=== PATIENT | female | born 1960 | race African-American/Black ===

== ENCOUNTER 2016-10-01 23:09 | Inpatient (IN) | payer OTHER ==
[~2016-10-01] VITALS: Ht 180.3 cm; Wt 96.8 kg
[2016-10-01] MEDS ORDERED: ALBUT/IPRATROP 3MG/0.5MG NEB 3 ML VIAL INH STA (23:25)
--- NOTE | 2016-10-01 23:44 | EMERGENCY ROOM VISIT NOTE ---
History Report prepared by Wallace: Jeet Aponte Under the Supervision of: Dr. Brenda Tipton M.D. First contact with patient: 23:16 Chief Complaint: SHORTNESS OF BREATH Stated Complaint: SOB, PAIN IN SIDE Nursing Triage Summary: Patient c/o SOB that began tonight. Associates dry, non-productive cough. Dx with pnx 1 month ago. Patient to have the 30 day repeat CXR today. History of Present Illness The patient is a 56 year old female who presents to the Emergency Room with complaints of constant shortness of breath starting earlier tonight. The patient currently rates her discomfort as a 8/10 in severity. The patient states that she had pneumonia about a month ago, and has been fine since then until today. She states that when she breathes in, she cannot get enough air in. The patient additionally states that she is having some pain when she lays down or moves, and she states that it radiates to her back. She denies any vomiting, diarrhea, or swelling in her legs. The patient states that when she had the pneumonia, she was on azithromycin. The patient states that she was given a flu shot, and she denies ever smoking. She states that she has been drinking well recently, however her appetite has decreased. The patient states that she was in the [place] about a month ago as well. Source of History: patient Onset: earlier tonight Position: other (global) Symptom Intensity: 8/10 Quality: other (shortness of breath) Timing: constant Associated Symptoms: No diarrhea, No vomiting Review of Systems See HPI for pertinent positives & negatives. A total of 10 systems reviewed and were otherwise negative. Past Medical & Surgical Medical Problems: (1) Dyslipidemia (2) Hepatitis B antibody positive Surgical Problems: (1) Status post breast biopsy (2) Status post hysterectomy Social History Smoking Status: Never Smoker Marital Status: Housing Status: lives with family Occupation Status: employed Current/Historical Medications Scheduled Aspirin (Aspirin Adult Low Dose), 81 MG PO DAILY Atorvastatin (Atorvastatin Calcium), 20 MG PO DAILY Multivitamin (Multivitamin), 1 TAB PO DAILY Allergies Coded Allergies: No Known Allergies (Unverified , 10/01/16) Physical Exam Vital Signs Date Time Temp Pulse Resp B/P Pulse Ox O2 Delivery O2 Flow Rate FiO2 10/02/16 02:19 74 18 137/67 96 Room Air 10/02/16 01:12 78 18 154/70 10/02/16 00:25 77 10/02/16 00:15 82 10/01/16 23:12 37.5 97 18 148/90 97 Room Air 10/01/16 23:12 97 Room Air Physical Exam Vital signs reviewed. General: Well-appearing female, in no significant distress. HEENT: No scleral icterus, PERRLA, neck supple. Atraumatic. Cardiovascular: Regular rate and rhythm, no extra sounds. Pulmonary: Dry cough, faint wheezing bilaterally Abdomen: Soft, nontender, nondistended, positive bowel sounds. Musculoskeletal: Atraumatic, no peripheral edema. Neurologic: Patient awake alert and oriented x 3, full strength in all 4 extremities. Cranial nerves 2 through 12 grossly intact. Skin: Warm, dry, no rash Medical Decision & Procedures ER Provider Diagnostic Interpretation: Chest X-ray as reviewed by me: Right mid-lung field density likely atelectasis or scarring. No focal lung consolidation. CT results as stated below per my review and radiologist interpretation: CTA CHEST: There is some artifact but exam appears positive for PE bilaterally. For example , suspect subsegmental PE right lower lobe and suspected PE in the lingular branches. Some opacity in the lingula is pleural-based and has an appearance suggesting possible infarct. Other areas of atelectasis with small amount of infiltrate not excluded. Cardiomegaly. Possible tiny low-density left thyroid lesion and other incidental findings. Radiologist: Jarrod Shi M.D. Laboratory Results 10/01/16 23:50 Red Blood Count 4.43, Mean Corpuscular Volume 82.4, Mean Corpuscular Hemoglobin 27.8, Mean Corpuscular Hemoglobin Concent 33.7, Mean Platelet Volume 10.4, Neutrophils (%) (Auto) 37.9, Lymphocytes (%) (Auto) 52.3, Monocytes (%) (Auto) 6.4, Eosinophils (%) (Auto) 3.2, Basophils (%) (Auto) 0.1, Neutrophils # (Auto) 2.68, Lymphocytes # (Auto) 3.70, Monocytes # (Auto) 0.45, Eosinophils # (Auto) 0.23, Basophils # (Auto) 0.01 10/01/16 23:50 Test 10/01/16 23:50 10/01/16 23:58 10/02/16 00:00 White Blood Count 7.08 K/uL (4.8-10.8) Red Blood Count 4.43 M/uL (4.2-5.4) Hemoglobin 12.3 g/dL (12.0-16.0) Hematocrit 36.5 % (37-47) Mean Corpuscular Volume 82.4 fL (80-100) Mean Corpuscular Hemoglobin 27.8 pg (25-34) Mean Corpuscular Hemoglobin Concent 33.7 g/dl (32-36) Platelet Count 157 K/uL (130-400) Mean Platelet Volume 10.4 fL (7.4-10.4) Neutrophils (%) (Auto) 37.9 % Lymphocytes (%) (Auto) 52.3 % Monocytes (%) (Auto) 6.4 % Eosinophils (%) (Auto) 3.2 % Basophils (%) (Auto) 0.1 % Neutrophils # (Auto) 2.68 K/uL (1.4-6.5) Lymphocytes # (Auto) 3.70 K/uL (1.2-3.4) Monocytes # (Auto) 0.45 K/uL (0.11-0.59) Eosinophils # (Auto) 0.23 K/uL (0-0.5) Basophils # (Auto) 0.01 K/uL (0-0.2) RDW Standard Deviation 48.0 fL (36.4-46.3) RDW Coefficient of Variation 15.8 % (11.5-14.5) Immature Granulocyte % (Auto) 0.1 % Immature Granulocyte # (Auto) 0.01 K/uL (0.00-0.02) Red Blood Cell Morphology Unremarkable D-Dimer 4820 ug/L FEU (0-500) Anion Gap 12.0 mmol/L (3-11) Est Creatinine Clear Calc Drug Dose 89.4 ml/min Estimated GFR () 83.9 Estimated GFR (Non- 72.4 BUN/Creatinine Ratio 4.4 (10-20) Calcium Level 9.1 mg/dl (8.5-10.1) Total Bilirubin 0.4 mg/dl (0.2-1) Direct Bilirubin 0.1 mg/dl (0-0.2) Aspartate Amino Transf (AST/SGOT) 12 U/L (15-37) Alanine Aminotransferase (ALT/SGPT) 26 U/L (12-78) Alkaline Phosphatase 70 U/L (45-117) Total Creatine Kinase 173 U/L (26-192) Creatine Kinase MB < 0.5 ng/ml (0.5-3.6) Creatine Kinase MB Ratio (0-3.0) Total Protein 6.7 gm/dl (6.4-8.2) Albumin 3.4 gm/dl (3.4-5.0) Influenza Type A Antigen Neg for Influ A (NEG) Influenza Type B Antigen Neg for Influ B (NEG) Bedside Troponin I 0.000 ng/ml (0-0.045) Hepatitis C Antibody Screen NEG (NEG) Date/Time Source Procedure Growth Status 10/02/16 00:00 Nasal MRSA DNA Surveillance Screen - Final Specimen Negative for MRSA by DNA Probe Complete Laboratory results per my review. Medications Administered Medications (Trade) Dose Ordered Sig/Abby Route Start Time Stop Time Status Last Admin Dose Admin Albuterol/ Ipratropium (Duoneb) 3 ml NOW STAT INH 10/01/16 23:25 10/01/16 23:27 DC 10/01/16 23:45 3 ML Prednisone (PredniSONE TAB) 60 mg NOW STAT PO 10/02/16 00:48 10/02/16 00:49 DC 10/02/16 00:56 60 MG Acetaminophen/ Hydrocodone Bitart 2 tab 2 tab NOW STAT PO 10/02/16 01:12 10/02/16 01:13 DC 10/02/16 01:17 2 TAB Sodium Chloride (Nss 500ml) 500 ml @ 999 mls/hr Q31M STAT IV 10/02/16 01:47 10/02/16 02:17 DC 10/02/16 01:47 999 MLS/HR Levofloxacin (Levaquin Tab) 750 mg NOW ONCE PO 10/02/16 02:45 10/02/16 02:46 DC 10/02/16 02:55 750 MG ECG Indication: SOB/dyspnea Rate (beats per minute): 82 Rhythm: normal sinus Findings: no acute ischemic change, no ectopy ED Course 2324: Past medical records reviewed. The patient was evaluated in room A3. A complete history and physical examination was performed. 2325: DuoNeb 3ml INH 0048: Prednisone 60mg PO 0055: I reevaluated the patient, and she was complaining about pain behind her breasts. 0100: Albuterol 2 puffs INH 0112: [place] 5/325 Tab 2 tab PO 0147: Sodium Chloride 500 ml @ 999 mls/hr IV 0245: Levofloxacin 750mg PO 0254: I reassessed the patient, and discussed the possibility of pneumonia 0330: I reevaluated the patient, and I discussed the findings and the plan. 0335: I discussed the patient's case with Dr. Haines. He is going to evaluate the patient for further treatment Medical Decision Differential diagnosed include: Etiologies such as infections, reactive airway disease, pneumonia, pneumothorax, COPD, CHF, cardiac ischemia, pulmonary embolism, musculoskeletal, gastrointestinal, as well as others were entertained. This patient was evaluated and appeared to be in no significant distress. IV access was obtained and laboratory work was drawn. The patient was placed on the site monitor. Chest x-ray was obtained and reveals intraparenchymal changes but no clear evidence of pneumonia to my interpretation. Laboratory work reveals a normal white blood cell count, elevated d-dimer. CT scan of the chest was performed and is concerning for pulmonary emboli with pulmonary infarct. The patient has remained stable. She had a hospitalization in the [facility] for approximately 6 days last month. She also fluid to and from her destination. The patient was placed on antibiotics for presumed pneumonia. I' m concerned that this may have actually been a pulmonary embolus one month ago. Nonetheless at this time the patient will be evaluated by the hospitalist service for definitive management. She was informed of the findings and agrees with the plan. Consults Time Called: [phone] Consulting Physician: Dr. Haines Returned Call: [phone] I discussed the patient's case with Dr. Haines. He is going to evaluate the patient for further treatment Impression Primary Impression: Pulmonary embolism Additional Impression: Pulmonary infarct Scribe Attestation The scribe's documentation has been prepared under my direction and personally reviewed by me in its entirety. I confirm that the note above accurately reflects all work, treatment, procedures, and medical decision making performed by me. Departure Information Dispostion Being Evaluated By Hospitalist Referrals Ana Laura Ortiz D.O. (PCP) Problem Qualifiers Primary Impression: Pulmonary embolism Pulmonary embolism type: other Chronicity: acute Acute cor pulmonale presence: without acute cor pulmonale Qualified Codes: I26.99 - Other pulmonary embolism without acute cor pulmonale
[2016-10-01] MEDS ORDERED: ATOR10TA88 PO (23:55)
[2016-10-02] VITALS (8 sets, daily range): BP systolic 122–148; BP diastolic 66–95; PULSE 69–90; TEMP 36.9–37.2; O2SAT 95–99; Ht 180.3 cm; Wt 96.8 kg
[2016-10-02 00:04] LABS: HEMATOCRIT 36.5 % (37-47); MEAN CELL VOLUME 82.4 fL (80-100); MEAN CORPUSCULAR HEMOGLOBIN 27.8 pg (25-34); MEAN CORPUSCULAR HGB CONC 33.7 g/dl (32-36); MEAN PLATELET VOLUME 10.4 fL (7.4-10.4); PLATELET COUNT 157 K/uL (130-400); RED BLOOD COUNT 4.43 M/uL (4.2-5.4); WHITE BLOOD COUNT 7.08 K/uL (4.8-10.8)
[2016-10-02 00:31] LABS: ALKALINE PHOSPHATASE 70 U/L (45-117); ALT/SGPT 26 U/L (12-78); AST/SGOT 12 U/L (15-37); BASO % 0.1 %; BASO ABS # 0.01 K/uL (0-0.2); BLOOD UREA NITROGEN 4 mg/dl (7-18); BUN/CREATININE RATIO 4.4 (10-20); CALCIUM 9.1 mg/dl (8.5-10.1); CARBON DIOXIDE 25 mmol/L (21-32); CHLORIDE 108 mmol/L (98-107); COMPLETE YES; CREATININE 0.88 mg/dl (0.60-1.20); EOS % 3.2 %; GLUCOSE 138 mg/dl (70-99); IG% 0.1 %; LYMPH % 52.3 %; MONO % 6.4 %; NEUT % 37.9 %; POTASSIUM 3.4 mmol/L (3.5-5.1); SODIUM 145 mmol/L (136-145)
[2016-10-02] MEDS ORDERED: PRED20TA PO (00:52)
[2016-10-02] MEDS: ALBUTEROL HFA 8 GM INHALER INH ONE ×2 (00:56→03:52)
[2016-10-02] MEDS ORDERED: HYDROCODONE/ACETAMOPHEN 5/325MG TAB PO STA (01:12)
[2016-10-02] MEDS ORDERED: SODIUM CHLORIDE 0.9% 500ML 500 ML IV STA (01:47)
[2016-10-02] MEDS ORDERED: OPTIRAY 320 IV PRN (02:00)
[2016-10-02] MEDS ORDERED: LEVO1TAB35 PO (02:44)
[2016-10-02] MEDS ORDERED: LEVOFLOXACIN 250 MG TAB PO ONE (02:45)
--- NOTE | 2016-10-02 03:47 | History and Physical ---
History & Physical Date & Time of Service: Oct 02, 2016 at 03:46 . Chief Complaint: left sided chest pain; shortness of breath . Primary Care Physician: Ana Laura Ortiz D.O. . History of Present Illness Source: patient, clinic records, hospital records 56 YO female followed by Dr. Ana Laura Ortiz. History of dyslipidemia and other problems noted below. Traveled to [place] in June. Developed respiratory symptoms that initially seems to be viral. Eventually experienced fever and worsening cough. Was hospitalized in August and treated for pneumonia. Returned to 08/18 via air. Had a lingering cough. Was seen in clinic and placed on prednisone taper which she finished about a week ago. Yesterday she developed severe left-sided chest pain associated with dyspnea. Pain worse with inspiration. Persistent cough, nonproductive. No hemoptysis. Pain did not radiate. No associated lower extremity pain or swelling. She did not take any analgesics at home. Came to ED for evaluation Pain improved somewhat after receiving hydrocodone / acetaminophen. . Past Medical/Surgical History Medical Problems: (1) Dyslipidemia Status: Chronic (2) Hepatitis B antibody positive Status: Chronic Surgical Problems: (1) Status post breast biopsy Permanent Comment: benign path Status: Chronic (2) Status post hysterectomy Permanent Comment: fibroids Status: Chronic . Family History FATHER Lymphoma MOTHER Hypertension SISTER Breast cancer SISTER Breast cancer AUNT Breast cancer Social History Smoking Status: Never Smoker Alcohol Use: occasionally Marital Status: Occupational Status: employed Allergies Coded Allergies: No Known Allergies (Unverified , 10/01/16) Home Medications Scheduled Aspirin (Aspirin Adult Low Dose), 81 MG PO DAILY Atorvastatin (Atorvastatin Calcium), 20 MG PO DAILY Multivitamin (Multivitamin), 1 TAB PO DAILY Review of Systems Constitutional: + fever, No weight loss Eyes: No diplopia, No worsening of vision ENT: No hearing loss, No sore throat Respiratory: + problem reported (as noted above) Cardiovascular: + problem reported (as noted above) Abdomen: No diarrhea, No nausea, No pain, No vomiting Genitourinary - Female: No dysuria, No hematuria Neurologic: No paralysis, No weakness Endocrine: No excessive thirst Hematologic / Lymphatic: No abnormal bleeding/bruising, No swollen lymph nodes Integumentary: No new/changing skin lesions, No rash Physical Exam Vital Signs Date Time Temp Pulse Resp B/P Pulse Ox O2 Delivery O2 Flow Rate FiO2 1/25/17 02:19 74 18 137/67 96 Room Air 10/02/16 01:12 78 18 154/70 10/02/16 00:25 77 10/02/16 00:15 82 10/01/16 23:12 37.5 97 18 148/90 97 Room Air 10/01/16 23:12 97 Room Air General Appearance: WD/WN, + mild distress Head: normocephalic, atraumatic Eyes: normal inspection, PERRL, EOMI, sclerae normal, + pertinent finding ( conjunctivae pink) ENT: normal ENT inspection, hearing grossly normal, pharynx normal, + pertinent finding (upper dentures; lower partial plate) Neck: supple, no adenopathy, thyroid normal, no JVD, trachea midline Respiratory/Chest: lungs clear, no respiratory distress, no accessory muscle use Cardiovascular: regular rate, rhythm, no edema, no gallop, no JVD, no murmur, normal peripheral pulses Abdomen/GI: normal bowel sounds, non tender, soft, no organomegaly Extremities/Musculoskelatal: no calf tenderness, no pedal edema Neurologic/Psych: epilepsy physician II-XII nml as tested (PERRL, EOMI, no facial palsy), no motor/sensory deficits (grossly intact), alert, normal mood/affect Skin: normal color, warm/dry Lymphatic: no adenopathy Diagnostics Laboratory Results Results Past 24 Hours Test 10/01/16 23:50 10/01/16 23:58 Range/Units White Blood Count 7.08 4.8-10.8 K/uL Red Blood Count 4.43 4.2-5.4 M/uL Hemoglobin 12.3 12.0-16.0 g/dL Hematocrit 36.5 37-47 % Mean Corpuscular Volume 82.4 80-100 fL Mean Corpuscular Hemoglobin 27.8 25-34 pg Mean Corpuscular Hemoglobin Concent 33.7 32-36 g/dl Platelet Count 157 130-400 K/uL Mean Platelet Volume 10.4 7.4-10.4 fL Neutrophils (%) (Auto) 37.9 % Lymphocytes (%) (Auto) 52.3 % Monocytes (%) (Auto) 6.4 % Eosinophils (%) (Auto) 3.2 % Basophils (%) (Auto) 0.1 % Neutrophils # (Auto) 2.68 1.4-6.5 K/uL Lymphocytes # (Auto) 3.70 1.2-3.4 K/uL Monocytes # (Auto) 0.45 0.11-0.59 K/uL Eosinophils # (Auto) 0.23 0-0.5 K/uL Basophils # (Auto) 0.01 0-0.2 K/uL RDW Standard Deviation 48.0 36.4-46.3 fL RDW Coefficient of Variation 15.8 11.5-14.5 % Immature Granulocyte % (Auto) 0.1 % Immature Granulocyte # (Auto) 0.01 0.00-0.02 K/uL Red Blood Cell Morphology Unremarkable D-Dimer 4820 0-500 ug/L FEU Sodium Level 145 136-145 mmol/L Potassium Level 3.4 3.5-5.1 mmol/L Chloride Level 108 98-107 mmol/L Carbon Dioxide Level 25 21-32 mmol/L Anion Gap 12.0 3-11 mmol/L Blood Urea Nitrogen 4 7-18 mg/dl Creatinine 0.88 0.60-1.20 mg/dl Est Creatinine Clear Calc Drug Dose 89.4 ml/min Estimated GFR () 83.9 Estimated GFR (Non- 72.4 BUN/Creatinine Ratio 4.4 10-20 Random Glucose 138 70-99 mg/dl Calcium Level 9.1 8.5-10.1 mg/dl Total Bilirubin 0.4 0.2-1 mg/dl Direct Bilirubin 0.1 0-0.2 mg/dl Aspartate Amino Transf (AST/SGOT) 12 15-37 U/L Alanine Aminotransferase (ALT/SGPT) 26 12-78 U/L Alkaline Phosphatase 70 45-117 U/L Total Creatine Kinase 173 26-192 U/L Creatine Kinase MB < 0.5 0.5-3.6 ng/ml Creatine Kinase MB Ratio 0-3.0 Total Protein 6.7 6.4-8.2 gm/dl Albumin 3.4 3.4-5.0 gm/dl Influenza Type A Antigen Neg for Influ A NEG Influenza Type B Antigen Neg for Influ B NEG Bedside Troponin I 0.000 0-0.045 ng/ml Diagnostic Radiology CHEST ONE VIEW PORTABLE IMPRESSION: Bibasilar airspace opacities, statistically atelectatic. No evidence of failure. Electronically signed by: Elías Hill M.D. 10/02/2016 6:47 AM CHEST X-RAY (preliminary report by undersigned) Probable atelectasis right mid lung and right lung base. CTA OF THE CHEST (preliminary report per [facility]) "There is some artifact but exam appears positive for PE bilaterally. For example, suspect subsegmental PE right lower lobe and suspected PE in the lingular branches. Some opacity in the lingula is pleural-based and has an appearance suggesting possible infarct." . EKG EKG performed at 23:34 reviewed and demonstrated NSR at 82 / minute, no acute ST or T-wave abnormalities. . Impression Assessment and Plan PULMONARY EMBOLI Presented with acute pleuritic chest pain + SOB. D-dimer elevated. Preliminary report of CTA chest indicates bilateral pulmonary emboli with suspected pulmonary infarction. Oxygenation and hemodynamics stable. No prior history of VTE. No known family history of VTE. Pulmonary emboli most likely provoke- recent illness with relative inactivity + air travel. Initiate anticoagulation with enoxaparin with expected transition to oral agent ; choice of oral agent to be determined after exploring prescription coverage for newer agents. Check venous duplex lower extremities. Prednisone for pleuritic chest pain. Oral analgesics for severe chest pain. Evaluation for hypercoagulable conditions not indicated at this time per guidelines. Duration of anticoagulation to be determined. Consider outpatient Hematology consultation. Routine cancer screening per guidelines. ABNORMAL CT CHEST Check follow-up CT to assure resolution of abnormalities, perhaps in about 6 weeks. DISPOSITION Admit to Telemetry Unit. Expected discharge to home. Family Medicine follow-up with Dr. Ana Laura Ortiz. . VTE Prophylaxis Risk Level: High Given or contraindicated: Enoxaparin (Lovenox)SQ
[2016-10-02] MEDS ORDERED: ACETAMINOPHEN 325 MG TAB PO PRN (04:00)
[2016-10-02] MEDS ORDERED: OXYCODONE HCL IR 5 MG TAB (IMMEDIATE RELEASE) PO PRN (04:30)
[2016-10-02] MEDS ORDERED: ENOXAPARIN 100 MG/1ML SYR SQ STA (04:31)
[2016-10-02] MEDS ORDERED: LPT/20 PO (05:05)
[2016-10-02] MEDS ORDERED: ASPI-589 PO (05:05)
[2016-10-02] MEDS ORDERED: MULT-506 PO (05:05)
--- NOTE | 2016-10-02 06:48 | DIAGNOSTIC IMAGING REPORT ---
CHEST ONE VIEW PORTABLE CLINICAL HISTORY: Pneumonia COMPARISON STUDY: No previous studies for comparison. FINDINGS: The heart is normal in size. There are bibasal airspace opacities likely atelectatic. There is mild thickening of the minor fissure. There is no failure. There are no pleural effusions.[ IMPRESSION: Bibasilar airspace opacities, statistically atelectatic. No evidence of failure. Electronically signed by: Elías Hill M.D. 10/02/2016 6:47 AM Dictated Date/Time: 10/02/2016 6:46 AM
--- NOTE | 2016-10-02 07:27 | DIAGNOSTIC IMAGING REPORT ---
CT ANGIOGRAM OF THE CHEST CLINICAL HISTORY: Pleuritic chest pain. Suspected pulmonary embolism. COMPARISON STUDY: Chest x-ray dated 10/01/2016 TECHNIQUE: Following the IV administration of 92 mL of [id number]-320, CT angiogram of the thorax was performed from the thoracic inlet to the lung bases utilizing the pulmonary embolus protocol. Images are reviewed in the axial, sagittal, and coronal planes. IV contrast was administered without complication. MIP imaging was performed. CT DOSE: 479.86 mGy.cm FINDINGS: There is no evidence of pathologic mediastinal adenopathy. Hilar lymph nodes are borderline enlarged. There is no pathologic axillary lymphadenopathy. There was no evidence of thoracic aortic dilatation. No central emboli are visualized. There are a few equivocal subsegmental pulmonary artery filling defects. A repeat examination might be considered in follow-up. No pleural effusions are visualized. There are low lung volumes. There is elevation right hemidiaphragm. There are right perihilar and bibasal airspace opacities, likely atelectatic although an inflammatory process could appear similar. IMPRESSION: 1. There are a few equivocal subsegmental pulmonary artery filling defects. No central emboli are visualized. A venous Doppler ultrasound of the lower extremities is recommended. A repeat CT angiogram of the chest should be considered if this examination is negative. 2. Low lung volumes with elevation of the right hemidiaphragm 3. Right perihilar and bibasal airspace opacities, likely atelectatic although an inflammatory process could appear similar. Electronically signed by: Elías Hill M.D. 10/02/2016 7:25 AM Dictated Date/Time: 10/02/2016 7:17 AM
[2016-10-02] MEDS ORDERED: POTASSIUM CHLORIDE 20 MEQ TABCR PO ONE (09:15)
--- NOTE | 2016-10-02 13:44 | DIAGNOSTIC IMAGING REPORT ---
BILATERAL LOWER EXTREMITY VENOUS DOPPLER CLINICAL HISTORY: Suspected pulmonary emboli COMPARISON STUDY: No previous studies for comparison. TECHNIQUE: Sonography of the deep venous system of the bilateral lower extremities was performed. Compression and augmentation were evaluated. FINDINGS: There is no deep venous thrombus within the right lower extremity. There is occlusive thrombus within the left femoral vein. No additional sites of deep venous thrombus are identified. IMPRESSION: Deep venous thrombus within the left femoral vein. Electronically signed by: Antony German M.D. 10/02/2016 1:43 PM Dictated Date/Time: 10/02/2016 1:42 PM
[2016-10-02] MEDS: ENOXAPARIN 100 MG/1ML SYR SQ SCH (16:27)
[2016-10-03] VITALS (11 sets, daily range): BP systolic 127–171; BP diastolic 66–91; PULSE 65–76; TEMP 36.5–37.1; O2SAT 94–99
[2016-10-03] MEDS: ENOXAPARIN 100 MG/1ML SYR SQ SCH ×2 (04:34→15:29)
[2016-10-03] MEDS: ATORVASTATIN 20 MG TAB PO SCH (07:42)
--- NOTE | 2016-10-03 18:51 | Progress Note ---
Internal Med Progress Note Date of Service: Oct 03, 2016. Provider Documentation: SUBJECTIVE: patient is sitting in her bed in no apparent distress. Denies any SOB. had one episode of mild chest pain overnight but did not last too long. has been ambulating in the hallway comfortably. OBJECTIVE: Vital Signs-as noted below Examination: General Appearance: WD/WN, Sitting in her bed in no distress. 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 ASSESSMENT & PLAN: CT ANGIOGRAM OF THE CHEST FINDINGS: There is no evidence of pathologic mediastinal adenopathy. Hilar lymph nodes are borderline enlarged. There is no pathologic axillary lymphadenopathy. There was no evidence of thoracic aortic dilatation. No central emboli are visualized. There are a few equivocal subsegmental pulmonary artery filling defects. A repeat examination might be considered in follow-up. No pleural effusions are visualized. There are low lung volumes. There is elevation right hemidiaphragm. There are right perihilar and bibasal airspace opacities, likely atelectatic although an inflammatory process could appear similar. IMPRESSION: 1. There are a few equivocal subsegmental pulmonary artery filling defects. No central emboli are visualized. A venous Doppler ultrasound of the lower extremities is recommended. A repeat CT angiogram of the chest should be considered if this examination is negative. 2. Low lung volumes with elevation of the right hemidiaphragm 3. Right perihilar and bibasal airspace opacities, likely atelectatic although an inflammatory process could appear similar. BILATERAL LOWER EXTREMITY VENOUS DOPPLER IMPRESSION: Deep venous thrombus within the left femoral vein. Acute Pulmonary Embolism & DVT: Presented with acute pleuritic chest pain + SOB.Clinically & hemodynamically doing well. D-dimer elevated. No prior history of VTE. No known family history of VTE. Pulmonary emboli most likely provoke- recent illness with relative inactivity + air travel. -Continue weight based Lovenox for now.patient goes to [place] so has given me information regarding her 's insurance which I am trying to find if it will cover Eliquis and accordingly transition will be made regarding anti-coagulation treatment. -Pain medication as needed -Supplemental oxygen as needed -Will need to see a Electro Tech as outpatient. -Routine cancer screening per guidelines. Abnormal CT Chest: Check follow-up CT to assure resolution of abnormalities, perhaps in about 6 weeks. Code Status: FULL CODE Disposition: Discharge planning as per the coverage for anti-coagulation. Family Medicine follow-up with Dr. Ana Laura Ortiz. . Vital Signs: Date Time Temp Pulse Resp B/P Pulse Ox O2 Delivery O2 Flow Rate FiO2 10/03/16 16:00 97 Room Air 10/03/16 15:19 36.9 73 171/80 98 Room Air 10/03/16 12:00 97 Room Air 10/03/16 11:44 37.0 73 16 153/91 97 Room Air 10/03/16 08:00 97 Room Air 10/03/16 07:52 37.1 73 18 135/78 94 Room Air 10/03/16 04:14 99 Room Air 10/03/16 03:46 37.1 75 18 127/66 96 Room Air 10/03/16 00:29 99 Room Air 10/02/16 23:31 37.0 76 18 136/71 97 Room Air 10/02/16 20:20 99 Room Air 10/02/16 19:42 36.9 90 16 148/66 99 Room Air
[2016-10-04 00:01] VITALS: O2SAT 95
[2016-10-04] MEDS: ENOXAPARIN 100 MG/1ML SYR SQ SCH (04:07)
[2016-10-04 04:14] VITALS: BP 143/91; PULSE 80; TEMP 36.6; O2SAT 97
[2016-10-04 06:40] LABS: BASO % 0.1 %; BASO ABS # 0.01 K/uL (0-0.2); COMPLETE YES; HEMATOCRIT 37.8 % (37-47); IG% 0.2 %; LYMPH % 46.4 %; LYMPH ABS # 4.52 K/uL (1.2-3.4); MEAN CELL VOLUME 81.8 fL (80-100); MEAN CORPUSCULAR HEMOGLOBIN 27.1 pg (25-34); MEAN CORPUSCULAR HGB CONC 33.1 g/dl (32-36); MEAN PLATELET VOLUME 10.9 fL (7.4-10.4); MONO % 5.2 %; NEUT % 47.1 %; PLATELET COUNT 184 K/uL (130-400); RED BLOOD COUNT 4.62 M/uL (4.2-5.4); WHITE BLOOD COUNT 9.74 K/uL (4.8-10.8)
[2016-10-04 07:23] VITALS: BP 145/82; PULSE 59; TEMP 36.8; O2SAT 99
[2016-10-04 07:36] LABS: CALCIUM 9.1 mg/dl (8.5-10.1); CREATININE 0.84 mg/dl (0.60-1.20); POTASSIUM 3.4 mmol/L (3.5-5.1)
[2016-10-04] MEDS: ATORVASTATIN 20 MG TAB PO SCH (07:41)
[2016-10-04] MEDS ORDERED: POTASSIUM CHLORIDE 20 MEQ TABCR PO ONE (08:30)
[2016-10-04 11:33] VITALS: BP 134/83; PULSE 65; TEMP 36.4; O2SAT 100
--- NOTE | 2016-10-04 11:37 | Progress Note ---
Internal Med Progress Note Date of Service: Oct 04, 2016. Provider Documentation: SUBJECTIVE: patient is sitting in her bed in no apparent distress. Denies any SOB. had one episode of mild chest pain overnight but did not last too long. has been ambulating in the hallway comfortably.Continues to feel better. OBJECTIVE: Vital Signs-as noted below Examination: General Appearance: WD/WN, Sitting in her bed in no distress. 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 ASSESSMENT & PLAN: CT ANGIOGRAM OF THE CHEST FINDINGS: There is no evidence of pathologic mediastinal adenopathy. Hilar lymph nodes are borderline enlarged. There is no pathologic axillary lymphadenopathy. There was no evidence of thoracic aortic dilatation. No central emboli are visualized. There are a few equivocal subsegmental pulmonary artery filling defects. A repeat examination might be considered in follow-up. No pleural effusions are visualized. There are low lung volumes. There is elevation right hemidiaphragm. There are right perihilar and bibasal airspace opacities, likely atelectatic although an inflammatory process could appear similar. IMPRESSION: 1. There are a few equivocal subsegmental pulmonary artery filling defects. No central emboli are visualized. A venous Doppler ultrasound of the lower extremities is recommended. A repeat CT angiogram of the chest should be considered if this examination is negative. 2. Low lung volumes with elevation of the right hemidiaphragm 3. Right perihilar and bibasal airspace opacities, likely atelectatic although an inflammatory process could appear similar. BILATERAL LOWER EXTREMITY VENOUS DOPPLER IMPRESSION: Deep venous thrombus within the left femoral vein. Acute Pulmonary Embolism & DVT: Presented with acute pleuritic chest pain + SOB.Clinically & hemodynamically doing well. D-dimer elevated. No prior history of VTE. No known family history of VTE. Pulmonary emboli most likely provoke- recent illness with relative inactivity + air travel. -Continue weight based Lovenox for now.patient goes to [place] so has given me information regarding her 's insurance which I am trying to find if it will cover Eliquis and accordingly transition will be made regarding anti-coagulation treatment.Found out today that Eliquis will be covered by her 's plan with a monthly copay of $20. Changed to Eliquis and give her first dose here. -Pain medication as needed -Supplemental oxygen as needed -Will need to see a Carpenter as outpatient. -Routine cancer screening per guidelines. Abnormal CT Chest: Check follow-up CT to assure resolution of abnormalities, perhaps in about 6 weeks. Code Status: FULL CODE Disposition: Discharge home later today. Family Medicine follow-up with Dr. Ana Laura Ortiz on 10/10/2016 @ 1.00 PM. . Vital Signs: Date Time Temp Pulse Resp B/P Pulse Ox O2 Delivery O2 Flow Rate FiO2 10/04/16 11:33 36.4 65 19 134/83 100 Room Air 10/04/16 08:00 Room Air 10/04/16 07:23 36.8 59 18 145/82 99 Room Air 10/04/16 04:14 36.6 80 18 143/91 97 Room Air 10/04/16 04:00 Room Air 10/04/16 00:01 95 Room Air 10/03/16 23:44 36.5 76 18 146/83 95 Room Air 10/03/16 20:02 Room Air 10/03/16 19:35 36.5 65 19 147/79 98 Room Air 10/03/16 16:00 97 Room Air 10/03/16 15:19 36.9 73 171/80 98 Room Air 10/03/16 12:00 97 Room Air 10/03/16 11:44 37.0 73 16 153/91 97 Room Air Lab Results: Results Past 24 Hours Test 10/04/16 06:11 Range/Units White Blood Count 9.74 4.8-10.8 K/uL Red Blood Count 4.62 4.2-5.4 M/uL Hemoglobin 12.5 12.0-16.0 g/dL Hematocrit 37.8 37-47 % Mean Corpuscular Volume 81.8 80-100 fL Mean Corpuscular Hemoglobin 27.1 25-34 pg Mean Corpuscular Hemoglobin Concent 33.1 32-36 g/dl Platelet Count 184 130-400 K/uL Mean Platelet Volume 10.9 7.4-10.4 fL Neutrophils (%) (Auto) 47.1 % Lymphocytes (%) (Auto) 46.4 % Monocytes (%) (Auto) 5.2 % Eosinophils (%) (Auto) 1.0 % Basophils (%) (Auto) 0.1 % Neutrophils # (Auto) 4.58 1.4-6.5 K/uL Lymphocytes # (Auto) 4.52 1.2-3.4 K/uL Monocytes # (Auto) 0.51 0.11-0.59 K/uL Eosinophils # (Auto) 0.10 0-0.5 K/uL Basophils # (Auto) 0.01 0-0.2 K/uL RDW Standard Deviation 46.9 36.4-46.3 fL RDW Coefficient of Variation 15.7 11.5-14.5 % Immature Granulocyte % (Auto) 0.2 % Immature Granulocyte # (Auto) 0.02 0.00-0.02 K/uL Sodium Level 143 136-145 mmol/L Potassium Level 3.4 3.5-5.1 mmol/L Chloride Level 107 98-107 mmol/L Carbon Dioxide Level 25 21-32 mmol/L Anion Gap 11.0 3-11 mmol/L Blood Urea Nitrogen 9 7-18 mg/dl Creatinine 0.84 0.60-1.20 mg/dl Est Creatinine Clear Calc Drug Dose 93.6 ml/min Estimated GFR () 88.8 Estimated GFR (Non- 76.6 BUN/Creatinine Ratio 11.0 10-20 Random Glucose 124 70-99 mg/dl Calcium Level 9.1 8.5-10.1 mg/dl
[2016-10-04] MEDS ORDERED: APIXABAN 2.5 MG TAB PO SCH (11:45)
[2016-10-04] MEDS ORDERED: ELQ25 PO (14:46)
[2016-10-04] MEDS ORDERED: RXC5 PO (14:46)
[2016-10-04] MEDS ORDERED: APIX1TAB3 PO (14:46)
--- NOTE | 2016-10-04 14:48 | Discharge Instructions ---
Discharge Instructions Admission Reason for Admission: Pulmonary Embolish Discharge Discharge Diagnosis / Problem: (1) Pulmonary embolism VTE Date & Time Date of VTE Diagnosis: Oct 02, 2016 Time of VTE Diagnosis: 11:30 Discharge Goals Goal(s): Decrease discomfort, Improve function, Increase independence, Improve disease control, Improve nutritional status, Learn about illness, Diagnostic testing, Therapeutic intervention Activity Recommendations Activity Limitations: resume your previous activity (As Tolerated.) Exercise/Sports Limitations: as tolerated May Resume Sexual Activity: when tolerated Shower/Bathe: no limitations Driving or Machine Use: no limitations (Take extra precautions to avoid any injury) . Instructions / Follow-Up Instructions / Follow-Up Follow up with PCP on 10/10/2016 @ 1.00 PM Medication Instructions: Your condition is typically treated with an anticoagulant. Anticoagulants will thin your blood to help prevent new clots. * You should take her medication exactly as directed. * Never skip a dose. * Never take a double dose. If you miss a dose, take it as soon as you remember. Call your Primary Care doctor if you experience any of the following: * Swelling or Pain in your leg * Sudden, continuous pain deep in a muscle * Pain that worsens when you are active or when you stand still for a long time * Chest Pain * Sudden Shortness of Breath * Rapid or pounding heart beat * Fainting * Dizziness * Cough with blood or bloody sputum * Sweating more than normal * Bruises * Heavy or uncontrolled bleeding * Blood in your urine, stool or vomit * Black or tarry stools Caring for Your Self at Home: * Avoid sitting, standing or lying down for long periods without moving your legs and feet * When traveling by car, stop to get out and move around at least once every 3 hours * On long airplane, train or bus rides, get up and move around when possible * If you can't get up, wiggle your toes and tighten your calves to keep your blood moving Follow Up: It is important for you to keep your follow up appointments with your medical provider. Current Hospital Diet Patient's current hospital diet: AHA Diet (Heart Healthy) Discharge Diet Recommended Diet: AHA Diet (Heart Healthy) Pending Studies Studies pending at discharge: no Medical Emergencies . Who to Call and When: Medical Emergencies: If at any time you feel your situation is an emergency, please call 911 immediately. . Non-Emergent Contact Non-Emergency issues call your: Primary Care Provider . . "Provider Documentation" section prepared by Eleazar Gooden. VTE Core Measure Inpt VTE Proph given/why not?: Enoxaparin (Lovenox)SQ, Other Anticoagulation ( Eliquis)
[2016-10-04 14:50] VITALS: BP 134/83; PULSE 65; TEMP 36.4; O2SAT 100
--- NOTE | 2016-10-04 14:51 | Discharge Summary ---
Discharge Summary Admission Date: Oct 02, 2016 at 03:48 Discharge Date: Oct 04, 2016 Discharge Disposition: Home Principal Diagnosis: Acute Pulmonary Embolism & DVT Abnormal CT Finding Secondary Diagnoses/Problems: NONE Procedures: NONE Vaccinations: NONE Consultations: NONE Pending Studies/Follow-Up: Needs a Follow up CT Chest in 4-6 weeks Medication Reconciliation New Medications: Apixaban (Eliquis) 5 Mg Tab 1 TAB PO BID, #60 TABS 1 Refill Apixaban (Eliquis) 2.5 Mg Tab 10 MG PO BID for 7 Days, #56 TAB Oxycodone HCl (Oxycodone HCl) 5 Mg Tab 10 MG PO Q6H PRN for severe pain, #15 TAB 0 Refills Continued Medications: Aspirin (Aspirin Adult Low Dose) 81 Mg Tab 81 MG PO DAILY Atorvastatin (Atorvastatin Calcium) 20 Mg Tab 20 MG PO DAILY, TAB Multivitamin (Multivitamin) Tab 1 TAB PO DAILY, TAB Admission Information HPI (per Admitting provider): 56 YO female followed by Dr. Ana Laura Ortiz. History of dyslipidemia and other problems noted below. Traveled to [place] in June. Developed respiratory symptoms that initially seems to be viral. Eventually experienced fever and worsening cough. Was hospitalized in August and treated for pneumonia. Returned to 08/18 via air. Had a lingering cough. Was seen in clinic and placed on prednisone taper which she finished about a week ago. Yesterday she developed severe left-sided chest pain associated with dyspnea. Pain worse with inspiration. Persistent cough, nonproductive. No hemoptysis. Pain did not radiate. No associated lower extremity pain or swelling. She did not take any analgesics at home. Came to ED for evaluation Pain improved somewhat after receiving hydrocodone / acetaminophen. . Physical Exam (per Admitting): General Appearance: WD/WN, + mild distress Head: normocephalic, atraumatic Eyes: normal inspection, PERRL, EOMI, sclerae normal, + pertinent finding ( conjunctivae pink) ENT: normal ENT inspection, hearing grossly normal, pharynx normal, + pertinent finding (upper dentures; lower partial plate) Neck: supple, no adenopathy, thyroid normal, no JVD, trachea midline Respiratory/Chest: lungs clear, no respiratory distress, no accessory muscle use Cardiovascular: regular rate, rhythm, no edema, no gallop, no JVD, no murmur , normal peripheral pulses Abdomen/GI: normal bowel sounds, non tender, soft, no organomegaly Extremities/Musculoskelatal: no calf tenderness, no pedal edema 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 Hilar lymph nodes are borderline enlarged. There is no pathologic axillary lymphadenopathy. There was no evidence of thoracic aortic dilatation. No central emboli are visualized. There are a few equivocal subsegmental pulmonary artery filling defects. A repeat examination might be considered in follow-up. No pleural effusions are visualized. There are low lung volumes. There is elevation right hemidiaphragm. There are right perihilar and bibasal airspace opacities, likely atelectatic although an inflammatory process could appear similar. IMPRESSION: 1. There are a few equivocal subsegmental pulmonary artery filling defects. No central emboli are visualized. A venous Doppler ultrasound of the lower extremities is recommended. A repeat CT angiogram of the chest should be considered if this examination is negative. 2. Low lung volumes with elevation of the right hemidiaphragm 3. Right perihilar and bibasal airspace opacities, likely atelectatic although an inflammatory process could appear similar. BILATERAL LOWER EXTREMITY VENOUS DOPPLER IMPRESSION: Deep venous thrombus within the left femoral vein. Acute Pulmonary Embolism & DVT: Presented with acute pleuritic chest pain + SOB.Clinically & hemodynamically doing well. D-dimer elevated. No prior history of VTE. No known family history of VTE. Pulmonary emboli most likely provoke- recent illness with relative inactivity + air travel. -Continue weight based Lovenox for now.patient goes to [employer] so has given me information regarding her 's insurance which I am trying to find if it will cover Eliquis and accordingly transition will be made regarding anti-coagulation treatment.Found out today that Eliquis will be covered by her 's plan with a monthly copay of $20. Changed to Eliquis and give her first dose here. -Pain medication as needed -Supplemental oxygen as needed -Will need to see a Knotting Machine Operator Portable as outpatient. -Routine cancer screening per guidelines. Abnormal CT Chest: Check follow-up CT to assure resolution of abnormalities, perhaps in about 6 weeks. Code Status: FULL CODE Disposition: Discharge home later today. Family Medicine follow-up with Dr. Ana Laura Ortiz on 10/10/2016 @ 1.00 PM. . Total time spent on discharge = 45 minutes. This includes examination of the patient, discharge planning, medication reconciliation, and communication with other providers. Discharge Instructions VTE Date & Time Date of VTE Diagnosis: Oct 02, 2016 Time of VTE Diagnosis: 11:30 Discharge Goals Goal(s): Decrease discomfort, Improve function, Increase independence, Improve disease control, Improve nutritional status, Learn about illness, Diagnostic testing, Therapeutic intervention Activity Recommendations Activity Limitations: resume your previous activity (As Tolerated.) Exercise/Sports Limitations: as tolerated May Resume Sexual Activity: when tolerated Shower/Bathe: no limitations Driving or Machine Use: no limitations (Take extra precautions to avoid any injury) . Instructions / Follow-Up Instructions / Follow-Up Follow up with PCP on 10/10/2016 @ 1.00 PM Additional Copies To Ana Laura Ortiz D.O.
== END 2016-10-04 15:30 | disposition home or self-care (01) | DRG 176 ==
LOC: ENRESERVDT → ENRESERVTM → C.EDB 23:11 → C.MSICU 10-02 03:48 → C.2T 10-02 14:08
PROVIDERS: ADMIT Hospitalist; ATTEND Emergency Medicine
DX: I26.99 Other pulmonary embolism without acute cor pulmonale (principal); I82.412 Acute embolism and thrombosis of left femoral vein; B19.10 Unspecified viral hepatitis B without hepatic coma; E78.5 Hyperlipidemia, unspecified; R93.8 Abnormal findings on diagnostic imaging of other specified body structures; R79.1 Abnormal coagulation profile; Z79.82 Long term (current) use of aspirin; Z79.899 Other long term (current) drug therapy

== ENCOUNTER → 2016-11-22 | Outpatient (CLI) | payer OTHER ==
[~2016-11-22] MED LIST: APIX1TAB3 PO; ASPI-589 PO; LPT/20 PO; MULT-506 PO; RXC5 PO
--- NOTE | 2016-11-25 08:55 | MAMMOGRAPHY REPORT ---
BILATERAL DIGITAL SCREENING MAMMOGRAM WITH CAD: 11/22/2016 CLINICAL HISTORY: Routine screening. Patient has no complaints. TECHNIQUE: Current study was also evaluated with a Computer Aided Detection (CAD) system. Bilatera l CC and MLO views and bilateral XCCL views were obtained. COMPARISON: Comparison is made to exams dated: 08/01/2015 mammogram, 07/12/2013 mammogram, 07/13/2014 mammogram, 06/29/2012 mammogram - [facility], 07/03/2011 mammogram, and 0 mammogram - [facility]. BREAST COMPOSITION: There are scattered areas of fibroglandular density in both breasts. FINDINGS: No suspicious masses, calcifications, or areas of architectural distortion are noted in e ither breast. There has been no significant interval change compared to prior exams. Mass with an a djacent biopsy marker clip in the right lower inner quadrant is stable dating back to at least the 2 012 exam. A few scattered benign-appearing calcifications are stable. IMPRESSION: ACR BI-RADS CATEGORY 2: BENIGN There is no mammographic evidence of malignancy. A 1 year screening mammogram is recommended. The p atient will receive written notification of the results. Approximately 10% of breast cancers are not detected with mammography. A negative mammographic repor t should not delay biopsy if a clinically suggestive mass is present. Nai Prasad M.D. ah/:11/22/2016 13:35:45 Field Contact Technician: Lydia COKER)(Freddie), [facility] letter sent: Normal 1/2 BI-RADS Code: ACR BI-RADS Category 2: Benign
== END | disposition home or self-care (01) ==
LOC: C.MAMM 12:59
PROVIDERS: ATTEND Family Medicine Adult Medicine
DX: Z12.31 Encounter for screening mammogram for malignant neoplasm of breast (principal)

== ENCOUNTER 2017-06-01 21:40 | Emergency (ER) | payer OTHER ==
[~2017-06-01] VITALS: Ht 180.3 cm; Wt 95.9 kg
[2017-06-01 21:47] VITALS: TEMP 37; Ht 180.3 cm; Wt 95.9 kg
--- NOTE | 2017-06-01 22:18 | EMERGENCY ROOM VISIT NOTE ---
History First contact with patient: 22:04 Chief Complaint: THROAT PAIN/INJURY Stated Complaint: THROAT HURTS History of Present Illness The patient is a 57 year old female who presents to the Emergency Room with complaints of a possible foreign body in her throat. The patient states that she feels like something is stuck in her throat. She denies pain, but reports feeling something stuck when she breathes in or swallows. She states it feels like it is in the left side. She does report that she was eating fish for dinner and is concerned she may have swallowed a bone. She denies any difficulty swallowing or breathing. Review of Systems A complete 10 point review of systems was reviewed with the patient with pertinent positives and negatives as per history of present illness. All else were negative. Past Medical/Surgical History Medical Problems: (1) Dyslipidemia (2) Hepatitis B antibody positive Surgical Problems: (1) Status post breast biopsy (2) Status post hysterectomy Family History Breast cancer SISTER SISTER AUNT Hypertension MOTHER Lymphoma FATHER Social History Smoking Status: Never Smoker Marital Status: Housing Status: lives with family Occupation Status: employed Current/Historical Medications Scheduled Apixaban (Eliquis), 1 TAB PO BID Aspirin (Aspirin Adult Low Dose), 81 MG PO DAILY Atorvastatin (Atorvastatin Calcium), 20 MG PO DAILY Multivitamin (Multivitamin), 1 TAB PO DAILY Physical Exam Vital Signs Date Time Temp Pulse Resp B/P (MAP) Pulse Ox O2 Delivery O2 Flow Rate FiO2 06/01/17 23:27 68 18 135/78 100 06/01/17 21:57 96 Room Air 06/01/17 21:47 37.0 86 18 162/80 98 Room Air Physical Exam VITALS: Vitals are noted on the nurse's note and reviewed by myself. Vital signs stable. GENERAL: This is a 57-year-old female, in no acute distress, nondiaphoretic, well-developed well-nourished. EARS: External auditory canals clear, tympanic membranes pearly vargas without erythema or effusion bilaterally. EYES: Pupils equal round and reactive to light and accommodation. MOUTH: Mucous membranes moist. Tonsils are not enlarged. Pharynx without erythema or exudate. No obvious foreign bodies. Airway patent. NECK: Supple without nuchal rigidity. No lymphadenopathy. HEART: Regular rate and rhythm without murmurs gallops or rubs. LUNGS: Clear to auscultation bilaterally without wheezes, rales or rhonchi. NEURO: Patient was alert and oriented to person place and time. Medical Decision & Procedures ER Provider Diagnostic Interpretation: SOFT TISSUE NECK FINDINGS: Normal prevertebral soft tissues. No distention of the hypopharynx. The epiglottis is normal. IMPRESSION: Normal study. CHEST ONE VIEW PORTABLE FINDINGS: The bones soft tissues and hemidiaphragms are normal. The cardiomediastinal silhouette is normal. The lungs are clear. The pulmonary vasculature is normal. IMPRESSION: Negative chest. No evidence for radiopaque foreign body Medical Decision Differential diagnosis includes food bolus, ingested foreign body, esophagitis, among others. The patient is a 57-year-old female who presents today complaining of a foreign body sensation in her throat. Exam is unremarkable. Vital signs are within normal limits. X-rays of the neck and chest were performed and read by radiology and do not show any foreign bodies. Patient was reassured. She is tolerating fluids and food by mouth. She was advised to follow-up with her primary care provider for any persistent symptoms as she may need an EGD at that time. She verbalized understanding of my assessment and treatment plan was discharged home in good condition. The patient's case was reviewed with Dr. Gomez, ED attending physician, who agreed with my assessment and treatment plan. Medication Reconcilliation Current Medication List: was personally reviewed by me Blood Pressure Screening Patient's blood pressure: Elevated blood pressure Blood pressure disposition: Elevated BP felt to be situational Impression Primary Impression: Foreign body sensation in throat Departure Information Dispostion Home / Self-Care Condition GOOD Referrals Ana Laura Ortiz D.O. (PCP) Patient Instructions My [facility] [employer] Additional Instructions Keep a soft diet for the next 2-3 days. For pain control, you can use the following [id number] medicines (if >12 yo): - Regular strength (325mg/tab) Tylenol (acetaminophen) 2 tabs every 4-6 hours as needed. Do not exceed 12 tablets in a 24 hour period. Avoid taking more than 4 grams (4000 mg) of Tylenol per day. This includes any other sources of acetaminophen you may take on a regular basis. - Regular strength (200 mg/tab) Advil (ibuprofen) 1-2 tabs every 4-6 hours as needed. Do not exceed a dose of 3200 mg per day. If you have persistent symptoms in 2-3 days, you should follow-up with your primary care provider, as you may need a scope.
--- NOTE | 2017-06-01 22:36 | DIAGNOSTIC IMAGING REPORT ---
SOFT TISSUE NECK TECHNIQUE: AP and lateral soft tissue neck FINDINGS: Normal prevertebral soft tissues. No distention of the hypopharynx. The epiglottis is normal. IMPRESSION: Normal study. The above report was generated using voice recognition software. It may contain grammatical, syntax or spelling errors. Electronically signed by: Chi Arroyo M.D. 06/01/2017 10:35 PM Dictated Date/Time: 06/01/2017 10:35 PM
--- NOTE | 2017-06-01 22:56 | DIAGNOSTIC IMAGING REPORT ---
CHEST ONE VIEW PORTABLE CLINICAL HISTORY: possible swallowed feb dysphagia COMPARISON STUDY: No previous studies for comparison. FINDINGS: The bones soft tissues and hemidiaphragms are normal. The cardiomediastinal silhouette is normal. The lungs are clear. The pulmonary vasculature is normal. IMPRESSION: Negative chest. No evidence for radiopaque foreign body The above report was generated using voice recognition software. It may contain grammatical, syntax or spelling errors. Electronically signed by: Chi Arroyo M.D. 06/01/2017 10:55 PM Dictated Date/Time: 06/01/2017 10:54 PM
[2017-06-01 23:27] VITALS: BP 135/78; PULSE 68; O2SAT 100
== END 2017-06-01 23:29 | disposition home or self-care (01) ==
LOC: C.EDB 21:41 → C.EDA 23:29
DX: R09.89 Other specified symptoms and signs involving the circulatory and respiratory systems (principal); E78.5 Hyperlipidemia, unspecified; Z86.19 Personal history of other infectious and parasitic diseases; Z80.9 Family history of malignant neoplasm, unspecified; Z82.49 Family history of ischemic heart disease and other diseases of the circulatory system; Z79.82 Long term (current) use of aspirin; Z79.899 Other long term (current) drug therapy

== ENCOUNTER → 2017-11-25 | Outpatient (CLI) | payer OTHER ==
[~2017-11-25] MED LIST changes: -LPT/20 PO; +LPT20 PO; -RXC5 PO
--- NOTE | 2017-11-26 14:12 | MAMMOGRAPHY REPORT ---
BILATERAL DIGITAL SCREENING MAMMOGRAM TOMOSYNTHESIS WITH CAD: 11/25/2017 CLINICAL HISTORY: Routine screening. Patient has no complaints. TECHNIQUE: Breast tomosynthesis in addition to standard 2D mammography was performed. Current study was also evaluated with a Computer Aided Detection (CAD) system. COMPARISON: Comparison is made to exams dated: 11/22/2016 mammogram, 08/01/2015 mammogram, 08/10/2014 mammogram, 07/13/2014 mammogram, 07/12/2013 mammogram, and 06/29/2012 mammogram - [facility]. BREAST COMPOSITION: There are scattered areas of fibroglandular density in both breasts. FINDINGS: There is a small 3 mm nodular asymmetry seen within the right medial breast middle depth on the cc view only, possibly projecting along the posterior nipple line on the MLO view, for which spo t compression tomosynthesis views and possible breast ultrasound are recommended for further evaluati on. The remainder of both breasts are stable compared to prior exams, without suspicious masses, calcific ations, or areas of architectural distortion noted. Circumscribed benign-appearing mass with an kenyetta cent biopsy marker clip in the right medial posterior breast is stable compared to multiple prior exa ms. IMPRESSION: ACR BI-RADS CATEGORY 0: INCOMPLETE EVALUATION: NEED ADDITIONAL IMAGING EVALUATION Right medial breast asymmetry, for which additional imaging evaluation is recommended. The patient w ill be called to schedule an appointment. Approximately 10% of breast cancers are not detected with mammography. A negative mammographic report should not delay biopsy if a clinically suggestive mass is present. Nai Prasad M.D. ah/:11/25/2017 16:52:23 Golf Club Manager: Lydia WEIR(Elisabeth)(M), [facility] letter sent: Addl Imaging 0 BI-RADS Code: ACR BI-RADS Category 0: Incomplete Evaluation: Need Additional Imaging Evaluation
== END | disposition home or self-care (01) ==
LOC: C.MAMM 09:34
PROVIDERS: ATTEND Physician Assistant
DX: Z12.31 Encounter for screening mammogram for malignant neoplasm of breast (principal)

== ENCOUNTER → 2017-12-05 | Outpatient (CLI) | payer OTHER ==
--- NOTE | 2017-12-05 15:05 | MAMMOGRAPHY REPORT ---
UNILATERAL RIGHT DIGITAL DIAGNOSTIC MAMMOGRAM TOMOSYNTHESIS AND TARGETED RIGHT ULTRASOUND: 12/05/2017 CLINICAL HISTORY: Callback from screening mammogram for right breast asymmetry. The patient reports a strong family history including her mother and 2 older sisters. TECHNIQUE: Breast tomosynthesis in addition to standard 2D mammography was performed. Right CC and MLO spot compression 2D and tomosynthesis images were obtained. COMPARISON: Comparison is made to exams dated: 11/25/2017 mammogram, 11/22/2016 mammogram, 08/01/2015 mammogram, 07/13/2014 mammogram, 07/12/2013 mammogram - [facility], and 07/03/2011 ma mmogram - [facility]. BREAST COMPOSITION: There are scattered areas of fibroglandular density in the right breast. FINDINGS: Spot compression views demonstrate a persistent low-density 4 mm nodular asymmetry within t he right medial breast middle depth on the cc view, only not clearly evident on the MLO view. Compar ed to prior exams, the asymmetry is likely not significantly changed on 2D views to the 2017 exam, ho wever, it was not clearly seen prior to 2017. Circumscribed benign-appearing mass in the right media l posterior breast with an adjacent biopsy marker clip is stable compared to prior exams. Targeted ultrasound was performed of the right medial breast in the region of the mammographic asymme try. In the right breast at 2:30, 10 cm from the nipple, there is an oval circumscribed hypoechoic b enign-appearing 3 x 3 mm mass. This is a similar size and shape to the mammographic asymmetry and ma y correspond with the mammographic asymmetry. The mass may represent a small complicated cyst or a b enign-appearing solid mass. IMPRESSION: ACR-BI-RADS CATEGORY 3: PROBABLY BENIGN, TARGETED ULTRASOUND ACR-BI-RADS CATEGORY 3: PRO BABLY BENIGN 1. Small nodular asymmetry in the right medial breast on the cc view is not significantly changed com pared to the 2017 exam. A circumscribed benign-appearing 3 mm mass is seen within the right 2:30 jeffrey ast on ultrasound, which may correspond with the mammographic asymmetry and may represent a small cys t or benign-appearing solid mass. Recommend follow-up diagnostic tomosynthesis mammograms and possib le ultrasound of the right breast in 6 months to confirm stability. 2. The patient reports a strong family history of breast cancer including multiple first-degree rela tives. The patient may qualify for annual bilateral breast MRI in addition to annual mammography, if her lifetime risk is greater than 20%. The patient has been verbally notified of the results. Approximately 10% of breast cancers are not detected with mammography. A negative mammographic report should not delay biopsy if a clinically suggestive mass is present. Nai Prasad M.D. ah/:12/05/2017 13:54:29 Skilled Laborer: Maritza COKER)(Freddie), [facility] letter sent: Follow Up Recommended 3 BI-RADS Code: ACR-BI-RADS Category 3: Probably Benign Ultrasound BI-RADS: ACR-BI-RADS Category 3: Pr obably Benign
== END | disposition home or self-care (01) ==
LOC: C.MAMM 13:20
PROVIDERS: ATTEND Physician Assistant
DX: N64.9 Disorder of breast, unspecified (principal); N63.10 Unspecified lump in the right breast, unspecified quadrant; Z80.3 Family history of malignant neoplasm of breast

== ENCOUNTER → 2018-01-05 | Outpatient (CLI) | payer OTHER ==
[~2018-01-05] MED LIST changes: +GADAVIST IV PRN
--- NOTE | 2018-01-06 12:45 | MAMMOGRAPHY REPORT ---
BREAST MRI OF BOTH BREASTS : 01/05/2018 CLINICAL HISTORY: 57-year-old woman with a strong family history of breast cancer presents for additi onal high risk screening. She was recently called back from screening mammography on 11/25/2017 for a small, 3 mm nodular asymmetry in the medial right breast middle depth for which diagnostic workup de monstrated a possible sonographic correlate in the 2:30 right breast, 10 cm from the nipple which cou ld represent a complicated cyst or benign appearing mass. COMPARISON: Comparison is made to exams dated: 12/05/2017 ultrasound, 12/05/2017 mammogram, 11/25/2017 mammogram, 11/22/2016 mammogram, 08/01/2015 mammogram, and 07/13/2014 mammogram - [facility]. TECHNIQUE: Using a 1.5 Adela magnet and dedicated breast coil, multisequence axial images were obtain ed through the breasts. After uneventful IV administration of 9.5 mL of Gadavist, dynamic multiphase contrast-enhanced axial images, and sagittal postcontrast were obtained. Temporal subtraction axial images and 3-D MIP images are provided. Everything was then reviewed on a 3-D workstation, [employer]. FINDINGS: Right breast: There is mild to moderate background parenchymal enhancement. There is an oval circums cribed enhancing mass in the far posterior 3:00 right breast, with adjacent focus of susceptibility a rtifact, representing a biopsy-proven benign mass. It measures 8 x 7 x 10 mm. This has been stable on multiple prior mammograms. Particular attention was paid to the remainder of the medial right jeffrey ast, middle depth, to assess for the 3 mm nodular mammographic asymmetry. There is no evidence of a cyst in this location on the T2-weighted sequence. No definite abnormal enhancement or enhancing mas s is seen. No evidence of suspicious kinetics. There is a faint focus of enhancement in the 3:00 mi ddle one third of the right breast on axial page 59/122, in the general location of the mammographic finding, but this appears similar to innumerable other foci of enhancement in both breasts and may be within the range of background. Nevertheless, this finding is better visualized mammographically an d should be followed with that modality to ensure stability. There is no suspicious right axillary l ymphadenopathy. No focal skin thickening or nipple retraction. The retromammary fat is intact. Left breast: There is mild to moderate background parenchymal enhancement. There is no evidence of a suspicious enhancing mass, non-mass enhancement, architectural distortion or suspicious kinetics in the left breast. No focal skin thickening or nipple retraction. The left retromammary fat is intact . No suspicious axillary lymphadenopathy. IMPRESSION: ACR-BI-RADS CATEGORY 3: PROBABLY BENIGN 1. There is no MRI evidence of malignancy in the breasts. 2. There is no suspicious MRI finding or a benign cyst identified to definitively correlate with the small, 3 mm nodular asymmetry in the medial right breast described on recent screening and diagnosti c mammograms. Would continue with prior diagnostic mammogram and ultrasound recommendations of a helen rt interval follow-up of the right breast to ensure stability, which is due in 5 months, as this find ing should be followed with the modality in which it is best visualized. 3. Pending follow-up diagnostic results in the right breast, would consider continuation of annual s creening MRI, given the strong family history of breast cancer. The patient will receive written notification of the results. Carole Mckeon M.D. ay/:01/05/2018 21:56:30 Computer Forensics Investigator: flight test supervisor, [facility] letter sent: Follow Up Recommended 3 BI-RADS Code: ACR-BI-RADS Category 3: Probably Benign
== END | disposition home or self-care (01) ==
LOC: C.MRI 07:37
PROVIDERS: ATTEND Surgery
DX: Z12.31 Encounter for screening mammogram for malignant neoplasm of breast (principal); Z80.3 Family history of malignant neoplasm of breast